=== PATIENT | female | born 1935 | race Caucasian/White ===

== ENCOUNTER 2018-08-10 07:49 | Emergency (ER) | payer MEDICARE, OTHER ==
[2018-08-10] MEDS ORDERED: ALBUTEROL SULFATE 0.083% NEB 2.5 MG/3 ML AMPUL NEB ONE (08:04)
[2018-08-10] MEDS ORDERED: GUAIFENESIN/CODEINE PHOS 100-10 MG/ 5 ML UDC PO ONE (08:04)
--- NOTE | 2018-08-10 08:33 | ER Document Report ---
ED Respiratory Problem - General Chief Complaint: Shortness Of Breath Stated Complaint: SHORT OF BREATH Time Seen by Provider: 08/10/18 08:04 Mode of Arrival: Ambulatory Information source: Patient Notes: Patient is an 82-year-old female who presents to the ER today for cough times 10 days, shortness of breath and wheezing, patient has COPD but does not have any inhalers or albuterol at home to use. She states that the cough has been getting worse over the last couple of days, she admits to a fever as high as 99.8 F. She has tried [id number] cough medications that have not been helping. She denies any chest pain. TRAVEL OUTSIDE OF THE [place] IN LAST 30 DAYS: No - Related Data Allergies/Adverse Reactions: zoma Allergy (Uncoded 08/10/18 07:52) Past Medical History - General Information source: Patient - Social History Smoking Status: Former Smoker Family History: Reviewed & Not Pertinent Patient has suicidal ideation: No Patient has homicidal ideation: No Renal/ Medical History: Denies: Hx Peritoneal Dialysis Review of Systems - Review of Systems Constitutional: See HPI EENT: See HPI Cardiovascular: No symptoms reported Respiratory: See HPI Gastrointestinal: No symptoms reported Genitourinary: No symptoms reported Female Genitourinary: No symptoms reported Musculoskeletal: No symptoms reported Skin: No symptoms reported Hematologic/Lymphatic: No symptoms reported Neurological/Psychological: No symptoms reported Physical Exam - Vital signs Vitals: Temp Pulse Resp BP Pulse Ox 98.1 F 92 16 156/79 H 95 08/10/18 07:59 08/10/18 07:59 08/10/18 07:59 08/10/18 07:59 08/10/18 07:59 - Notes Notes: PHYSICAL EXAMINATION: GENERAL: Mildly ill-appearing, coughing, otherwise in no acute distress. HEAD: Atraumatic, normocephalic. EYES: Pupils equal round and reactive to light, extraocular movements intact, sclera anicteric, conjunctiva are normal. ENT: Airway patent, ear canals without erythema or foreign body, TMs pearly gauthier with good bony landmarks, nares patent, oropharynx clear without exudates. Moist mucous membranes. NECK: Normal range of motion, supple without lymphadenopathy LUNGS: Mild expiratory wheezes rales or rhonchi. HEART: Regular rate and rhythm without murmurs ABDOMEN: Soft, no tenderness. No guarding, no rebound BACK: no vertebral tenderness, normal ROM GI/: no CVA tenderness EXTREMITIES: Normal range of motion, no pitting edema. No cyanosis. NEUROLOGICAL: Cranial nerves grossly intact. Normal sensory/motor exams. PSYCH: Normal mood, normal affect. SKIN: Warm, Dry, normal turgor, no rashes or lesions noted Course - Re-evaluation Re-evalutation: 08/10/18 08:57 Chest x-ray negative for any acute pathology, flu negative, patient will be started on a Z-Ramu and she was given a steroid shot here in the emergency department, will be sent home with albuterol inhaler. Vitals are stable. She did improve after DuoNeb here. - Vital Signs Vital signs: Temp Pulse Resp BP Pulse Ox 98.1 F 87 18 143/90 H 99 08/10/18 07:59 08/10/18 09:13 08/10/18 09:13 08/10/18 09:13 08/10/18 09:13 Discharge - Discharge Clinical Impression: Bronchitis Sinusitis Qualifiers: Sinusitis location: unspecified location Chronicity: acute Recurrence: non- recurrent Qualified Code(s): J01.90 - Acute sinusitis, unspecified Condition: Stable Disposition: HOME, SELF-CARE Instructions: Bronchitis With Bronchospasm (Wheezing) ([facility]), Sinusitis ([facility]) Additional Instructions: Return immediately for any new or worsening symptoms. Follow up with primary care provider, call tomorrow to make followup appointment.
--- NOTE | 2018-08-10 08:51 | RADIOLOGY REPORT (SQ) ---
EXAM DESCRIPTION: CHEST 2 VIEWS COMPLETED DATE/TIME: 08/10/2018 8:18 am REASON FOR STUDY: cough worsening, sob COMPARISON: None. EXAM PARAMETERS: NUMBER OF VIEWS: two views TECHNIQUE: Digital Frontal and Lateral radiographic views of the chest acquired. RADIATION DOSE: NA LIMITATIONS: none FINDINGS: LUNGS AND PLEURA: Old calcified granulomas right lower lobe. No evidence of pulmonary velasquez ma or pneumonia. MEDIASTINUM AND HILAR STRUCTURES: Calcified mediastinal and hilar nodes. HEART AND VASCULAR STRUCTURES: Heart normal size. No evidence for failure. BONES: No acute findings. HARDWARE: None in the chest. OTHER: No other significant finding. IMPRESSION: NO ACUTE RADIOGRAPHIC FINDING IN THE CHEST. TECHNICAL DOCUMENTATION: JOB ID: [id number] [employer]- All Rights Reserved Reading location - IP/workstation name: [email or web address]
[2018-08-10 08:53] LABS: A TYPE INFLUENZA AG NEGATIVE (NEGATIVE); B INFLUENZA AG NEGATIVE (NEGATIVE)
[2018-08-10] MEDS ORDERED: METHYLPREDNISOLONE INJ 125 MG/2 ML SDV IM ONE (08:58)
[2018-08-10 09:16] VITALS: BP 143/90
== END 2018-08-10 09:15 | disposition home or self-care (01) ==
LOC: ER 07:49
DX: J40 Bronchitis, not specified as acute or chronic (principal); J01.90 Acute sinusitis, unspecified; J44.9 Chronic obstructive pulmonary disease, unspecified; R06.02 Shortness of breath; Z87.891 Personal history of nicotine dependence
CPT/HCPCS: 94640; 99285; 96372; 87804; 71046; J2930; A9270 ×2